=== PATIENT | female | born 1970 | race Caucasian/White ===

== ENCOUNTER 2020-08-20 10:09 | Emergency (ER) | payer OTHER, SELFPAY ==
[2020-08-20 10:11] VITALS: BP 157/94; PULSE 69; RESP 14; TEMP 36.8; O2SAT 100; BMI 23.9
--- NOTE | 2020-08-20 10:29 | ED.DCSUM_ITS ---
History of Present Illness Chief Complaint: Chest Pain Informant: Patient Narrative: 50-year-old female with no significant cardiac history presenting with left- sided chest pain which started this morning. She describes it as pressure and points to the left side of her chest and left shoulder. She states she has some sense of tingling down her left arm. Patient states that this appears to be a little worse when she exerts herself and she did get lightheaded today. Denies shortness of breath or diaphoresis. Patient states that she has never had a stress test. She has no history of DVT/PE and no risk factors. She has no family history of cardiac disease in a young age. Her only other symptom that she had today was a couple episodes of chills. She has no body aches, cough, fever. Patient does state that she has had some history of palpitations in the past and over the last months of them having sensation of palpitations and heart racing which resolves after she coughs and clears her throat. She has not had this evaluated by her primary care physician and has an upcoming appointment. Past Medical History - Allergies and Home Meds Allergies/Adverse Reactions: Allergies acetaminophen [From Percocet] Allergy (Verified 08/20/20 10:11) Shortness of breath diphenhydramine [From Benadryl] Allergy (Verified 08/20/20 10:11) Anaphylaxis gluten Allergy (Verified 08/20/20 10:11) Upset Stomach oxycodone [From Percocet] Allergy (Verified 08/20/20 10:11) Shortness of breath GUTEN Allergy (Uncoded 08/20/20 10:11) Upset Stomach Primary Care Physician: Que Ramos MD [NON-STAFF] - Prior records reviewed: Yes Past Medical History: - - Noncontributory Surgical History: noncontributory Lives: Spouse/ Significant Other Smoking Status: Never smoker Alcohol: None Drugs: None Review of Systems General: Reports: Chills. Denies: Fever, Sweats Eyes: Denies: Visual changes - bilaterally, Diplopia ENT: Denies: Rhinorrhea, Sore throat Cardiovascular: Reports: Chest pain, Palpitations, Heart racing Respiratory: Denies: Dyspnea, Cough Gastrointestinal: Denies: Abdominal pain, Nausea, Vomiting, Diarrhea, Constipation Genitourinary: Denies: Dysuria, Hematuria Musculoskeletal: Denies: Myalgias, Arthralgias Skin: Denies: Rash Neurological: Reports: - - Sensation of tingling in the left arm and the left fingers.. Denies: Headache, Weakness Psych: Denies: Depression, Anxiety, Suicidal thoughts, Suicidal ideations, -, - Physical Exam Vital Signs/Narrative: Vital Signs Temp Pulse Resp BP Pulse Ox 08/20/20 10:11 98.2 F 69 14 157/94 H 100 Inital Vital Signs reviewed: Yes General: Well nourished, No Acute Distress Head: Normocephalic, Atraumatic Eyes: Perrl, EOMI ENT: Moist mucous membranes, No rhinorrhea Cardiovascular: Regular rate, Regular rhythm Respiratory: No distress, CTA bilaterally Abdomen: Soft, Nontender Back: Nontender, Normal Inspection Extremities: Nontender, No edema. Negative for: Calf Tenderness Skin: Normal color, No rash. Negative for: Cyanosis, Diaphoresis, Jaundice Neurological: Alert, Oriented x3, Cranial nerves II-XII grossly intact Psychological: Normal affect, Normal Mood Diagnostic/Tx/Re-eval - Medical Decision Making 50-year-old female presenting with chest pain since about 7 AM this morning. She states it was fairly abrupt in onset and feels it was worsened by activity. She did not specifically have shortness of breath diaphoresis, nausea. She states that she has had some episodes of palpitations over the course the last month and she is awaiting an upcoming appointment with her doctor. Patient had EKG performed on arrival which shows a sinus rhythm at 80 bpm without signs of ischemic changes as interpreted by myself. Patient is PERC negative. Heart score is 2. Patient will have cardiac work-up including delta troponin. Patient's initial blood work is normal. Troponin is negative. Patient will have repeat blood work at 1345. Given her heart score of 2 if this is negative I feel she safe to be discharged home. Repeat EKG shows a sinus bradycardia at 59 bpm without signs of ischemic change or interval change as interpreted by myself. Troponin was negative. Given a heart score of 2 and negative delta troponin I feel the patient is stable to be discharged home at this time. She is counseled on all findings. She is counseled to follow-up with her PCP to ensure resolution. Patient given return precautions. Impression: 1. Chest pain ED Disposition - Plan for ED Patient: Disposition: Home or Assisted Living Instructions: ED Chest Pain, Uncertain Cause Referrals: Que Ramos MD [NON-STAFF] -
--- NOTE | 2020-08-20 10:29 | EKG12_ITS ---
Test Reason : CHEST PAIN Blood Pressure : / mmHG Vent. Rate : 080 BPM Atrial Rate : 080 BPM P-R Int : 146 ms QRS Dur : 084 ms QT Int : 362 ms P-R-T Axes : 066 090 043 degrees QTc Int : 417 ms Normal sinus rhythm with sinus arrhythmia Rightward axis Borderline ECG Confirmed by JEANNE RAINEY, ANNY ([id number]), restaurant expeditor AVNI TURK ([id number]) on 08/21/2020 2:20:44 PM Referred By: RACHEL Confirmed By:ANNY ANGEL MD
--- NOTE | 2020-08-20 10:29 | RAD_ITS ---
STUDY: X-RAY CHEST REASON FOR EXAM: Female, 50 years old. chest pain TECHNIQUE: Single AP portable view of the chest. COMPARISON: None. FINDINGS: The lungs are clear and expanded. There is no demonstrated pleural abnormality. Normal size heart. Normal mediastinum and rd. Normal visualized pulmonary arteries. Normal visualized aortic arch and descending thoracic aorta. Normal visualized thoracic spine. Normal visualized ribs, clavicles, and shoulders. There is no demonstrated abnormality of the visualized soft tissue structures of the upper abdomen. RAD/Chest 1 View (Portable) IMPRESSION: No evidence of acute cardiopulmonary process. Electronically Signed: Parth Mondragon DO at 11:07 EDT , Service support ,
[2020-08-20 11:13] LABS: Anion Gap 5 (5-15); BUN 13 mg/dL (7-18); BUN/Creat Ratio 19.3 RATIO (10-20); Calcium,Total 9.3 mg/dL (8.5-10.1); Chloride 108 mmol/L (98-107); Creatinine, Serum 0.67 mg/dL (0.55-1.02); EST Glomerular Filtration Rate 99 mL/min (>60); Est Glom Filt Rate - Afr Amer 120 mL/min (>60); Estimated Creatinine Clearance 95.08 ml/min; Glucose 90 mg/dL (74-106); Potassium 5.1 mmol/L (3.5-5.1); Sodium Level 137 mmol/L (136-145)
[2020-08-20 11:20] LABS: Absolute Lymphocyte Count 1.65 X10^3/uL (0.83-4.51); Absolute Neutrophil Count 2.9 X10^3/uL (2.0-7.7); Basophil# 0.05 X10^3/uL; Basophil% 0.9 % (0-1); Eosinophil# 0.36 X10^3/uL; Eosinophils% 6.5 % (0-5); Hematocrit 39.9 % (37-47); Hemoglobin 13.1 g/dL (12.0-15.0); Lymphocyte # 1.65 X10^3/ul (4.0); Lymphocyte % 29.7 % (19-41); Mean Corp Hgb Conc 32.8 g/dL (32-36); Mean Corpuscular Volume 94.3 fL (81-99); Mean Platelet Vol. 10.9 fl (6.2-12.0); Monocyte# 0.54 X10^3/uL; Monocyte% 9.7 % (0-10); NRBC Flagged by Analyzer 0 % (0-5); Neutrophil # 2.94 X10^3/uL (2.7-7.7); Platelet Count 216 K/mm3 (150-450); RBC Distribution Width CV 13.2 % (11.6-14.6); RBC Distribution Width SD 46.5 fl (35.1-43.9); Red Blood Count 4.23 M/mm3 (4.2-5.4); White Blood Count 5.6 K/mm3 (4.4-11.0)
[2020-08-20] MEDS: Aspirin 81 MG TAB.CHEW 324 MG PO (11:29)
[2020-08-20 11:31] VITALS: BP 130/65; PULSE 72; RESP 17; O2SAT 98
[2020-08-20 12:18] VITALS: BP 111/70; PULSE 58; RESP 16; O2SAT 99
[2020-08-20 13:19] VITALS: BP 115/68; PULSE 57; RESP 14; O2SAT 98
--- NOTE | 2020-08-20 13:45 | EKG12_ITS ---
Test Reason : REPEAT Blood Pressure : / mmHG Vent. Rate : 059 BPM Atrial Rate : 059 BPM P-R Int : 152 ms QRS Dur : 086 ms QT Int : 418 ms P-R-T Axes : 066 083 041 degrees QTc Int : 413 ms Sinus bradycardia with sinus arrhythmia Otherwise normal ECG Confirmed by JEANNE RAINEY, ANNY ([id number]), slot editor AVNI TURK ([id number]) on 08/21/2020 2:20:59 PM Referred By: RACHEL Confirmed By:ANNY ANGEL MD
[2020-08-20 14:06] VITALS: BP 114/79; PULSE 58; RESP 14; O2SAT 97
[2020-08-20 14:28] VITALS: BP 111/69; PULSE 73; RESP 14; O2SAT 99
== END 2020-08-20 14:29 | disposition home or self-care (01) ==
PROVIDERS: Emergency Provider Student in an Organized Health Care Education/Training Program; PCP Student in an Organized Health Care Education/Training Program
DX: R07.9 Chest pain, unspecified (principal); R20.2 Paresthesia of skin; R00.1 Bradycardia, unspecified; R42 Dizziness and giddiness
CPT/HCPCS: 71045; 80048; 84484; 85025; 93005; 99285; A4216